=== PATIENT | male | born 1995 | race African-American/Black ===

== ENCOUNTER 2018-12-02 16:03 | Emergency (ER) | payer SELFPAY ==
--- NOTE | 2018-12-02 16:09 | PDOC ---
Rapid Medical Evaluation Time Seen by Provider: 12/02/18 16:08 Medical Evaluation: 12/02/18 16:08 I have performed a brief in-person evaluation of this patient. The patient presents with a chief complaint of: abd pain Pertinent physical exam findings:stable and in NAD, non-focal I have ordered the following:labs The patient will proceed to the ED for further evaluation.
[2018-12-02 16:10] VITALS: BMI 21.8
[2018-12-02] MEDS ORDERED: SODIUM CHLORIDE 1,000 ML IV STA (16:10)
[2018-12-02 16:45] LABS: BASO % 0.3 % (0-2.0); HEMATOCRIT 43.2 % (35.4-49); HEMOGLOBIN 13.9 GM/dL (11.7-16.9); LYMPH % 7.6 % (8-40); MCH 28.2 pg (25.7-33.7); MCHC 32.2 g/dl (32.0-35.9); MEAN CELL VOLUME 87.6 fl (80-96); MEAN PLT VOLUME 9.9 fl (7.5-11.1); MONO % 4.4 % (3.8-10.2); NEUT % 87.7 % (42.8-82.8); PLATELET COUNT 199 K/MM3 (134-434); RBC 4.93 M/mm3 (4.00-5.60); WHITE BLOOD COUNT 12.4 K/mm3 (4.0-10.0)
[2018-12-02] MEDS ORDERED: ONDANSETRON 4 MG/2 ML VIAL IVPUSH ONE (16:50)
--- NOTE | 2018-12-02 16:59 | PDOC ---
History of Present Illness - General Chief Complaint: Pain, Acute Stated Complaint: ABD/PAIN/VOMITTING/NAUSEA Time Seen by Provider: 12/02/18 16:08 - History of Present Illness Initial Comments: 12/02/18 16:55 23m with pmh of appendicitis 5 years ago presents to the ED with nausea, vomiting, diarrhea and abdominal pain since last night. The pain is diffuse over the lower abdomen, constant and worsening. He minimally communicative due to the discomfort produced by the nausea and the pain. Had 3 episodes of vomiting spread across the day. Denies eating anything abnormal, denies sick contacts. Moved his bowel once today, which was watery. No bloody or black stools. Denies taking any medication for the pain. Admits to alcohol and marijuana use last night, but no more than usual. Past History - Past Medical History Allergies/Adverse Reactions: Allergies Allergy/AdvReac Type Severity Reaction Status Date / Time No Known Allergies Allergy Verified 12/02/18 16:10 COPD: No - Surgical History Appendectomy: Yes - Suicide/Smoking/Psychosocial Hx Smoking History: Never smoked Hx Alcohol Use: No Drug/Substance Use Hx: No Review of Systems - Review of Systems Able to Perform ROS?: Yes Is the patient limited Romansh proficient: No Constitutional: No: Symptoms Reported HEENTM: No: Symptoms Reported Respiratory: No: Symptoms reported Cardiac (ROS): No: Symptoms Reported ABD/GI: Yes: See HPI : No: Symptoms Reported Musculoskeletal: No: Symptoms Reported All Other Systems: Reviewed and Negative *Physical Exam - Vital Signs Last Vital Signs Temp Pulse Resp BP Pulse Ox 97.9 F 55 L 16 125/68 100 12/02/18 16:07 12/02/18 16:07 12/02/18 16:07 12/02/18 16:07 12/02/18 16:07 - Physical Exam General Appearance: Yes: Nourished, Appropriately Dressed, Moderate Distress HEENT: positive: EOMI, DAVID, Normal ENT Inspection Respiratory/Chest: positive: Lungs Clear, Normal Breath Sounds. negative: Chest Tender, Respiratory Distress Cardiovascular: positive: Regular Rhythm, S1, S2, Bradycardia Gastrointestinal/Abdominal: positive: Normal Bowel Sounds, Tender (only mildly tender on palpation of the lower abdomen.), Flat, Soft Male Genitalia: positive: normal genitalia. negative: testicular tenderness, testicular mass, epididymus tender, hernia Musculoskeletal: positive: Normal Inspection. negative: CVA Tenderness Extremity: positive: Normal Capillary Refill, Normal Inspection, Normal Range of Motion Neurologic: positive: Fully Oriented, Alert, Normal Mood/Affect, Normal Response , Motor Strength 08/02 ED Treatment Course - LABORATORY CBC & Chemistry Diagram: 12/02/18 16:33 12/02/18 16:09 Medical Decision Making - Medical Decision Making 12/02/18 17:23 23M with lower abdominal pain n/v/d/ since last night. Viral gastroenteritis vs testicular torsion vs UTi Will check the patient's basic labs for signs of infection or dehydration, give fluids and zofran. If no relief, will consider ct scan with contrast. 12/02/18 18:11 Patient reassessed, non tender on exam, mildly nauseous, however patient still complaining of pain. UA pending. Ct abdomen and pelvis with contrast pending. 12/02/18 19:14 Patient signed out to Dr. Garza. *DC/Admit/Observation/Transfer Diagnosis at time of Disposition: Abdominal pain - Referrals - Patient Instructions - Post Discharge Activity
[2018-12-02 17:15] VITALS: TEMP 98
[2018-12-02 17:15] LABS: ALBUMIN 4.3 g/dl (3.4-5.0); BILIRUBIN,TOTAL 1.4 mg/dL (0.2-1); BLOOD UREA NITROGEN 7.5 mg/dL (7-18); CALCIUM 10.1 mg/dL (8.5-10.1); CREATININE 0.9 mg/dL (0.55-1.3); POTASSIUM 3.9 mmol/L (3.5-5.1); TOT PROT 8.7 g/dl (6.4-8.2)
[2018-12-02] MEDS ORDERED: ONDANSETRON 4 MG/2 ML VIAL ONE (17:19)
--- NOTE | 2018-12-02 19:13 | PDOC ---
Documentation entered by Gina Moy SCRIBE, acting as scribe for Coreen Brown MD. Coreen Brown MD: This documentation has been prepared by the Farzaneh mckeon Xhesika, SCRIBE, under my direction and personally reviewed by me in its entirety. I confirm that the documentation accurately reflects all work, treatment, procedures, and medical decision making performed by me. Attending Attestation - Resident Resident Name: [place] - ED Attending Attestation I have performed the following: I have examined & evaluated the patient, The case was reviewed & discussed with the resident, I agree w/resident's findings & plan, Exceptions are as noted - HPI HPI: 12/02/18 18:02 The patient is a 23 year old male with a significant PMH of appendicitis (2013) who presents to the emergency department for nausea, vomiting, diarrhea and abdominal pain since last night. The patient states he endorsed 3 episodes of NBNB emesis last night and 3 episodes throughout the day today. Patient states he also endorsed 1 episode of watery, non bloody diarrhea and constant, diffuse lower abdominal pain. Patient notes he had alcohol and marjiuana last night. Patient denies sick contacts, recent travels, or new foods. The patient denies chest pain, shortness of breath, headache and dizziness. Denies fever, chills, cough, and constipation. Denies dysuria, frequency, urgency and hematuria. Denies recent travel. Allergies: NKDA - Physicial Exam PE: 12/02/18 18:03 GENERAL: Awake, alert, and fully oriented, in no acute distress EYES: PERRLA, EOMI, sclera anicteric, conjunctiva clear ENT: Oropharynx clear without exudates. Moist mucosa NECK: Normal ROM, supple, no lymphadenopathy, JVD, or masses LUNGS: Breath sounds equal, clear to auscultation bilaterally. No wheezes, and no crackles HEART: Regular rate and rhythm, normal S1 and S2, no murmurs, rubs or gallops ABDOMEN: Soft, +diffuse lower abd ttp, normoactive bowel sounds. No guarding, no rebound. No masses EXTREMITIES: Normal range of motion, no edema. No cords, erythema, or tenderness. WWP, 2+ peripheral pulses x4 BACK: No midline spinal tenderness in cervical/thoracic/lumbar region NEUROLOGICAL: Normal speech, cranial nerves intact, equal strength and sensation b/l SKIN: Warm, Dry, normal turgor, no rashes or lesions noted. - Medical Decision Making 12/02/18 18:07 23yo M prsents to the ED with lower abdominal pain a/w N/V/D DDx includes colitis vs gastreneteritis vs diverticulitis vs cannabinoid hyperemesis syndrome vs UTI Plan for labs, UA, CTAP, symptom control, dispo Labs, UA, CTAP pending 12/02/18 19:00 Labs with leukocytosis to 12 Continues to be tender in lower abdomen, specifically LLQ UA, CTAP pending Case signed out to Dr. Cutler for further mgmt/dispo
--- NOTE | 2018-12-02 19:20 | PDOC ---
*Physical Exam - Vital Signs Last Vital Signs Temp Pulse Resp BP Pulse Ox 98.0 F 89 22 H 142/74 100 12/02/18 17:11 12/02/18 17:11 12/02/18 17:11 12/02/18 17:11 12/02/18 16:07 - Physical Exam General Appearance: Yes: Nourished, Appropriately Dressed. No: Apparent Distress, Alcohol on Breath HEENT: positive: EOMI, DAVID, Normal Voice, Symmetrical, Pharynx Normal. negative: Scleral Icterus (R), Scleral Icterus (L), Pharyngeal Erythema, Tonsillar Exudate, Tonsillar Erythema, Nasal Congestion Neck: positive: Trachea midline, Normal Thyroid, Supple. negative: Tender, Lymphadenopathy (R), Lymphadenopathy (L) Respiratory/Chest: positive: Lungs Clear, Normal Breath Sounds. negative: Chest Tender, Respiratory Distress, Crackles, Rales, Rhonchi Cardiovascular: positive: Regular Rhythm, Regular Rate Gastrointestinal/Abdominal: positive: Normal Bowel Sounds, Soft. negative: Tender, Organomegaly Musculoskeletal: positive: Normal Inspection Extremity: positive: Normal Capillary Refill, Normal Inspection, Normal Range of Motion. negative: Tender Integumentary: positive: Normal Color, Dry, Warm Neurologic: positive: Fully Oriented, Alert, Normal Mood/Affect, Normal Response ED Treatment Course - LABORATORY CBC & Chemistry Diagram: 12/02/18 16:33 12/02/18 16:09 - ADDITIONAL ORDERS Additional order review: Laboratory Results 12/02/18 16:09 Sodium 139 Potassium 3.9 Chloride 103 Carbon Dioxide 29 Anion Gap 7 L BUN 7.5 Creatinine 0.9 Est GFR (CKD-EPI)AfAm 139.04 Est GFR (CKD-EPI)NonAf 119.96 Random Glucose 96 Calcium 10.1 Total Bilirubin 1.4 H AST 17 ALT 16 Alkaline Phosphatase 100 Total Protein 8.7 H Albumin 4.3 12/02/18 16:33 RBC 4.93 MCV 87.6 MCHC 32.2 RDW 13.0 MPV 9.9 Neutrophils % 87.7 H Lymphocytes % 7.6 L Monocytes % 4.4 Eosinophils % 0.0 Basophils % 0.3 - Medications Given in the ED: ED Medications Discontinued Medications Generic Name Dose Route Start Last Admin Trade Name Freq PRN Reason Stop Dose Admin Sodium Chloride 1,000 mls @ 1,000 mls/hr 12/02/18 16:10 12/02/18 17:19 Normal Saline - IV 12/02/18 17:09 1,000 mls/hr ASDIR STA Administration Ondansetron HCl 4 mg 12/02/18 16:50 12/02/18 17:19 Zofran Injection IVPUSH 12/02/18 16:51 4 mg ONCE ONE Administration Medical Decision Making - Medical Decision Making 12/02/18 19:19 Signed out to me by Dr. Nicholson. 23M presenting with N/V/D and abd pain. Gave fluids, Zofran, N/V under control but still having abd pain. Getting CT abd with contrast to further evaluate abd pathology. WBC 12. Plan: [] CT abd w/ contrast [] dispo home if no pathology noted 12/02/18 21:27 CT abd read: Impression: Allowing for lack of bowel distention and lack of intraluminal contrast there appears to be concentric colonic wall thickening suggestive of acute colitis. Correlate clinically. Confirmation and further evaluation utilizing CT with oral contrast may be considered. A very small amount of free fluid is noted within the lower pelvis in the region of the rectovesical space. Small nonobstructing bilateral renal calculi. Nonspecific mildly enlarged retroperitoneal and mesenteric lymph nodes are seen. Patient has unspecified colitis but no history or known etiology. Will send home with referral for GI Dr. Carrillo to assess for possible Crohn's vs. UC vs. infectious etiology. 12/02/18 21:41 Reports marijuana smoking daily twice a day for the last 5 years. Day team concerned about cyclic vomiting syndrome. Will trial 5mg IM haldol. 12/02/18 22:38 Patient feels better after IM haldol. PO trialed, able to hold down crackers and juice. Patient will be discharged and picked up by mother. *DC/Admit/Observation/Transfer Diagnosis at time of Disposition: Abdominal pain Qualifiers: Abdominal location: unspecified location Qualified Code(s): R10.9 - Unspecified abdominal pain Nausea & vomiting Qualifiers: Vomiting type: unspecified Vomiting Intractability: non-intractable Qualified Code(s): R11.2 - Nausea with vomiting, unspecified - Discharge Dispostion Disposition: HOME Condition at time of disposition: Stable Decision to Admit order: No - Prescriptions Prescriptions: Ondansetron [Zofran -] 4 mg PO BID PRN #14 tablet PRN Reason: Nausea And/Or Vomiting - Referrals Referrals: Gaudencio Carrillo MD [Staff Physician] - Alireza Martinez MD [Staff Physician] - - Patient Instructions Printed Discharge Instructions: DI for Abdominal Pain-Adult, DI for Nausea -- Adult Additional Instructions: Today you were evaluated for nausea, vomiting, and abdominal pain. Your labs show that you have an elevated white blood cell count that is not concerning at this time, but should be followed-up with your primary doctor. We obtained a CT scan of your abdomen that shows you have a condition called colitis, but we are unsure of the reason why or if it is related to your diarrhea, and needs to be followed-up with a varnish melter helper. Please stay hydrated and eat bland foods as tolerated for your nausea and vomiting. We have included a prescription for Zofran to help with your nausea. Please follow-up with your primary doctor in the next 3 days for further evaluation and continuation of care. We have included a referral for the internal medicine clinic at [facility]. We have also included a referral to see Dr. Carrillo, a varnish melter helper, for further evaluation of the colitis seen on your CT scan. If you experience further abdominal pain, worsening diarrhea/vomiting/nausea, have blood in your vomit or stools, become dizzy or weak, have fevers, or have any other new or concerning symptoms, please return to the closest emergency room as soon as possible. - Post Discharge Activity
[2018-12-02 19:34] LABS: URINE APPEARANCE CLEAR; URINE BILIRUBIN NEGATIVE (NEGATIVE); URINE COLOR YELLOW; URINE GLUCOSE (UA) NEGATIVE (NEGATIVE); URINE KETONE 2+ (NEGATIVE); URINE LEUK ESTERASE NEGATIVE (NEGATIVE); URINE NITRITE NEGATIVE (NEGATIVE); URINE PROTEIN NEGATIVE (NEGATIVE)
[2018-12-02] MEDS ORDERED: HALOPERIDOL LACTATE 5 MG/ML IM ONE (21:39)
[2018-12-02] MEDS ORDERED: HALOPERIDOL LACTATE 5 MG/ML ONE (22:15)
[2018-12-02 23:24] VITALS: BP 128/62; PULSE 60
== END 2018-12-02 23:29 | disposition home or self-care (01) ==
LOC: JER 16:03
PROC: 3E0233Z Introduction of Anti-inflammatory into Muscle, Percutaneous Approach (ICD-10-PCS; principal; 2018-12-02)
PROC: 3E0337Z Introduction of Electrolytic and Water Balance Substance into Peripheral Vein, Percutaneous Approach (ICD-10-PCS; 2018-12-02)
PROC: 3E033GC Introduction of Other Therapeutic Substance into Peripheral Vein, Percutaneous Approach (ICD-10-PCS; 2018-12-02)
DX: K52.9 Noninfective gastroenteritis and colitis, unspecified (principal); F12.10 Cannabis abuse, uncomplicated
CPT/HCPCS: 36415; 74177-TC; 80053; 81003; 85025; 87086; 99283-25; J7030

== ENCOUNTER 2018-12-04 13:13 | Emergency (ER) | payer OTHER ==
[2018-12-04 13:55] VITALS: BMI 21.8
[2018-12-04] MEDS ORDERED: ONDANSETRON 4 MG/2 ML VIAL IVPB ONE (15:00)
[2018-12-04] MEDS ORDERED: SODIUM CHLORIDE 1,000 ML IV STA (15:00)
--- NOTE | 2018-12-04 15:03 | PDOC ---
History of Present Illness - General Chief Complaint: Nausea/Vomiting Stated Complaint: VOMITTING Time Seen by Provider: 12/04/18 14:34 History Source: Patient, Old Records Exam Limitations: No Limitations - History of Present Illness Travel History: No Initial Comments: 12/04/18 15:01 HISTORY OF PRESENT ILLNESS: 23-year-old male with past medical history of appendicitis status post appendectomy 2014 presents emergency department for evaluation of abdominal pain for 2 days. Reports the pain is diffuse throughout his abdomen is unable to quantify other than it's "really bad." Patient has associated nausea and vomiting and reports his inability to tolerate solids or liquids since discharge from the ER yesterday. Patient was seen in this emergency department yesterday and is noted to have a negative workup and found to have an acute gastroenteritis. Patient reports noted in the minimum feel better was receiving a held all injection prior to discharge. No recent travel or sick contacts. PAST MEDICAL HISTORY: Denies past medical history SURGICAL HISTORY: Denies ALLERGIES: No known drug allergies REVIEW OF SYSTEMS General/Constitutional: Denies fever or chills. Denies weakness, weight change. HEENT: Denies change in vision. Denies ear pain or discharge. Denies sore throat. Cardiovascular: Denies chest pain or shortness of breath. Respiratory: Denies cough, wheezing, or hemoptysis. Gastrointestinal: see HPI Genitourinary: Denies dysuria, frequency, or change in urination. Musculoskeletal: Denies joint or muscle swelling or pain. Denies neck or back pain. Skin and breasts: Denies rash or easy bruising. Neurologic: Denies headache, vertigo, loss of consciousness, or loss of sensation. Psychiatric: Denies depression or anxiety. Endocrine: Denies increased thirst. Denies abnormal weight change. Hematologic/Lymphatic: Denies anemia, easy bleeding, or history of blood clots. Allergic/Immunologic: Denies hives or skin allergy. Denies latex allergy. PHYSICAL EXAM General Appearance: Well-appearing, appropriately dressed. No apparent distress , no intoxication. Respiratory/Chest: Lungs CTAB. No shortness of breath, chest tenderness, respiratory distress, accessory muscle use. No crackles, rales, rhonchi, stridor , wheezing, dullness Cardiovascular: RRR. S1, S2. No JVD, murmur, bradycardia, tachycardia. Vascular Pulses: Dorsalis-Pedis (R): 2+, Dorsalis-Pedis (L): 2+ Gastrointestinal/Abdominal: Normal bowel sounds. Abdomen soft, non-distended. No tenderness or rebound tenderness. No organomegaly, pulsatile mass, guarding, hernia, hepatomegaly, splenomegaly. Integumentary: Appropriate color, dry, warm. No cyanosis, erythema, jaundice or rash Past History - Past Medical History Allergies/Adverse Reactions: Allergies Allergy/AdvReac Type Severity Reaction Status Date / Time No Known Allergies Allergy Verified 12/04/18 13:45 Home Medications: Ambulatory Orders Ondansetron [Zofran -] 4 mg PO BID PRN #14 tablet 12/02/18 COPD: No - Surgical History Appendectomy: Yes - Suicide/Smoking/Psychosocial Hx Smoking History: Unknown if ever smoked Hx Alcohol Use: No Drug/Substance Use Hx: No *Physical Exam - Vital Signs Last Vital Signs Temp Pulse Resp BP Pulse Ox 98.3 F 68 16 139/62 100 12/04/18 13:42 12/04/18 13:42 12/04/18 13:42 12/04/18 13:42 12/04/18 13:42 ED Treatment Course - LABORATORY CBC & Chemistry Diagram: 12/04/18 16:30 12/04/18 15:55 Medical Decision Making - Medical Decision Making 12/04/18 15:04 A/P: 23-year-old man with continued abdominal pain status post discharge from ER on CT of the abdomen and pelvis performed on 12/03 as follows: Impression: Allowing for lack of bowel distention and lack of intraluminal contrast there appears to be concentric colonic wall thickening suggestive of acute colitis. Correlate clinically. Confirmation and further evaluation utilizing CT with oral contrast may be considered. A very small amount of free fluid is noted within the lower pelvis in the region of the rectovesical space. Small nonobstructing bilateral renal calculi. Nonspecific mildly enlarged retroperitoneal and mesenteric lymph nodes are seen. Repeat CBC and CMP with lipase Normal saline 1 L IV bolus Zofran 8 mg IV push Reassess 12/04/18 17:07 Patient continues to have abdominal pain despite IV fluids and Zofran. Upon further questioning patient admits to smoking marijuana after leaving the hospital last night. Patient understands this is not a good idea. Most likely symptoms are from cyclic vomiting syndrome due to marijuana usage. I will give the patient a dose of haloperidol 5 mg IM once and reevaluate. 12/04/18 19:32 Patient states improvement after receiving haloperidol injection. It was explained to the patient that Haldol injections should not be needed when he can just abstain from marijuana usage. Patient is verbalized understanding of discharge instructions. I discussed the physical exam findings, ancillary test results and final diagnoses with the patient. I answered all of the patient's questions. The patient was satisfied with the care received and felt comfortable with the discharge plan and treatment plan. The patient will call their primary care physician within 24 hours to arrange follow-up and will return to the Emergency Department with any new, persistent or worsening symptoms. Portions of this note have been documented using voice recognition software. As a result, errors may occur in the rehabilitation psychologist process. Effort has been made to correct all grammatical and rehabilitation psychologist error, but some may have been missed. *DC/Admit/Observation/Transfer Diagnosis at time of Disposition: Nausea & vomiting Qualifiers: Vomiting type: cyclical vomiting Vomiting Intractability: non-intractable Qualified Code(s): G43.A0 - Cyclical vomiting, not intractable - Discharge Dispostion Disposition: HOME Condition at time of disposition: Stable Decision to Admit order: No - Referrals - Patient Instructions Additional Instructions: Avoid marijuana and alcohol usage. Follow-up with Dr. Carrillo from GI for continued evaluation from her previous visit. Return to the emergency department for any new or worsening symptoms. Thank you very much for choosing us to provide your emergent health care needs. - Post Discharge Activity
--- NOTE | 2018-12-04 15:24 | PDOC ---
*Physical Exam - Vital Signs Last Vital Signs Temp Pulse Resp BP Pulse Ox 98.3 F 68 16 139/62 100 12/04/18 13:42 12/04/18 13:42 12/04/18 13:42 12/04/18 13:42 12/04/18 13:42 ED Treatment Course - LABORATORY CBC & Chemistry Diagram: 12/04/18 16:30 12/04/18 15:55 Medical Decision Making - Medical Decision Making 12/04/18 18:27 Mr. Nazario is a 23 yo M h/o appendectomy in 2013, presenting with abdominal pain x 2 days Diffuse throughout his abdomen is unable to quantify other than it's "really bad." Patient has associated nausea and vomiting and reports his inability to tolerate solids or liquids since discharge from the ER yesterday. CT yesterday, no SBO, possible colitis (however, no po contrast) Will plan to check labs Will IV hydrate Will re Assess Pt signed out to overnight team 12/04/18 19:04 Agree with plan per SERVICE STATION MANAGER Gabe Agree with physical examination *DC/Admit/Observation/Transfer Diagnosis at time of Disposition: Nausea & vomiting - Discharge Dispostion Disposition: HOME Condition at time of disposition: Stable - Referrals - Patient Instructions Additional Instructions: Avoid marijuana and alcohol usage. Follow-up with Dr. Carrillo from GI for continued evaluation from her previous visit. Return to the emergency department for any new or worsening symptoms. Thank you very much for choosing us to provide your emergent health care needs. - Post Discharge Activity
[2018-12-04] MEDS ORDERED: ONDANSETRON 4 MG/2 ML VIAL ONE (16:01)
[2018-12-04 17:04] LABS: BASO % 0.3 % (0-2.0); HEMATOCRIT 38.9 % (35.4-49); HEMOGLOBIN 12.9 GM/dL (11.7-16.9); LYMPH % 7.5 % (8-40); MCH 28.7 pg (25.7-33.7); MCHC 33.2 g/dl (32.0-35.9); MEAN CELL VOLUME 86.5 fl (80-96); MEAN PLT VOLUME 10.3 fl (7.5-11.1); MONO % 3.8 % (3.8-10.2); NEUT % 88.4 % (42.8-82.8); PLATELET COUNT 182 K/MM3 (134-434); RDW 12.8 % (11.9-15.9); WHITE BLOOD COUNT 8.2 K/mm3 (4.0-10.0)
[2018-12-04] MEDS ORDERED: HALOPERIDOL LACTATE 5 MG/ML IM ONE (17:07)
[2018-12-04 17:26] LABS: ALBUMIN 4.3 g/dl (3.4-5.0); BILIRUBIN,TOTAL 1.7 mg/dL (0.2-1); BLOOD UREA NITROGEN 10.7 mg/dL (7-18); CALCIUM 9.8 mg/dL (8.5-10.1); CREATININE 0.9 mg/dL (0.55-1.3); POTASSIUM 3.7 mmol/L (3.5-5.1); TOT PROT 8.6 g/dl (6.4-8.2)
[2018-12-04] MEDS ORDERED: HALOPERIDOL LACTATE 5 MG/ML ONE (17:52)
[2018-12-04 18:01] VITALS: BP 127/58; PULSE 58; TEMP 99.5
== END 2018-12-04 20:53 | disposition home or self-care (01) ==
LOC: JER 13:13
PROC: 3E0337Z Introduction of Electrolytic and Water Balance Substance into Peripheral Vein, Percutaneous Approach (ICD-10-PCS; principal; 2018-12-04)
PROC: 3E033GC Introduction of Other Therapeutic Substance into Peripheral Vein, Percutaneous Approach (ICD-10-PCS; 2018-12-04)
PROC: 3E023NZ Introduction of Analgesics, Hypnotics, Sedatives into Muscle, Percutaneous Approach (ICD-10-PCS; 2018-12-04)
DX: G43.A0 Cyclical vomiting, in migraine, not intractable (principal)
CPT/HCPCS: 36415; 80053; 83690; 85025; 96361; 96372; 96374; 99283-25; J7030

== ENCOUNTER 2020-09-26 16:56 | Emergency (ER) | payer OTHER ==
[2020-09-26 17:09] VITALS: TEMP 97.9; BMI 23.1
[2020-09-26] MEDS ORDERED: ONDANSETRON 4 MG/2 ML VIAL IVPUSH ONE (17:20)
[2020-09-26] MEDS ORDERED: SODIUM CHLORIDE 1,000 ML IV STA ×2 (17:20→19:33)
[2020-09-26] MEDS ORDERED: ONDANSETRON 4 MG/2 ML VIAL ONE (18:09)
[2020-09-26 18:40] LABS: BASO % 0.3 % (0-2.0); HEMATOCRIT 42.6 % (35.4-49); HEMOGLOBIN 13.9 GM/dL (11.7-16.9); LYMPH % 6.6 % (8-40); MCH 28.7 pg (25.7-33.7); MCHC 32.5 g/dl (32.0-35.9); MEAN CELL VOLUME 88.3 fl (80-96); MEAN PLT VOLUME 9.5 fl (7.5-11.1); MONO % 4.2 % (3.8-10.2); NEUT % 88.9 % (42.8-82.8); PLATELET COUNT 199 10^3/uL (134-434); RBC 4.82 M/mm3 (4.00-5.60); RDW 12.5 % (11.9-15.9); WHITE BLOOD COUNT 12.6 K/mm3 (4.0-10.0)
[2020-09-26 19:00] LABS: CALCIUM 9.9 mg/dL (8.5-10.1)
[2020-09-26 19:01] LABS: ALBUMIN 4.4 g/dl (3.4-5.0)
[2020-09-26 19:03] LABS: CREATININE 0.8 mg/dL (0.55-1.3)
[2020-09-26 19:05] LABS: BILIRUBIN,TOTAL 0.9 mg/dL (0.2-1); TOT PROT 9.2 g/dl (6.4-8.2)
[2020-09-26] MEDS ORDERED: METOCLOPRAMIDE HCL INJECTION 10 MG/2 ML VIAL IVPUSH ONE (19:33)
[2020-09-26] MEDS ORDERED: METOCLOPRAMIDE HCL INJECTION 10 MG/2 ML VIAL ONE (20:43)
[2020-09-26 23:05] LABS: PH,URINE 5.5 (5.0-8.0); URINE APPEARANCE CLEAR; URINE BILIRUBIN NEGATIVE (NEGATIVE); URINE COLOR YELLOW; URINE GLUCOSE (UA) NEGATIVE (NEGATIVE); URINE KETONE 3+ (NEGATIVE); URINE LEUK ESTERASE NEGATIVE (NEGATIVE); URINE NITRITE NEGATIVE (NEGATIVE); URINE PROTEIN NEGATIVE (NEGATIVE); URINE UROBILINOGEN 0.2 mg/dL (0.2-1.0)
[2020-09-26 23:08] VITALS: BP 132/75; PULSE 62
== END 2020-09-26 23:33 | disposition home or self-care (01) ==
LOC: JER 16:56
PROC: 3E033GC Introduction of Other Therapeutic Substance into Peripheral Vein, Percutaneous Approach (ICD-10-PCS; principal; 2020-09-26)
PROC: 3E033GC Introduction of Other Therapeutic Substance into Peripheral Vein, Percutaneous Approach (ICD-10-PCS; 2020-09-26)
PROC: 3E0337Z Introduction of Electrolytic and Water Balance Substance into Peripheral Vein, Percutaneous Approach (ICD-10-PCS; 2020-09-26)
PROC: 3E0337Z Introduction of Electrolytic and Water Balance Substance into Peripheral Vein, Percutaneous Approach (ICD-10-PCS; 2020-09-26)
DX: K52.9 Noninfective gastroenteritis and colitis, unspecified (principal)
CPT/HCPCS: 36415; 80053; 81003; 83690; 85025; 87086; 99284-25

== ENCOUNTER 2022-09-10 20:10 | Observation (INO) | payer OTHER ==
[2022-09-10] MEDS ORDERED: SODIUM CHLORIDE 0.9% 500 ML INFUS.BAG IV ONE ×2 (20:25→21:37)
[2022-09-10] MEDS ORDERED: FAMOTIDINE 20 MG/50 ML IVPB 20 MG/50 ML MG IVPB ONE ×2 (20:25→20:34)
[2022-09-10] MEDS ORDERED: ACETAMINOPHEN 1000 MG/100 ML BAG IVPB ONE (20:25)
[2022-09-10] MEDS ORDERED: ONDANSETRON 4 MG/2 ML VIAL IVPUSH ONE (20:26)
[2022-09-10] MEDS ORDERED: ONDANSETRON 4 MG/2 ML VIAL ONE (20:34)
[2022-09-10] MEDS ORDERED: ACETAMINOPHEN INJECTION 100 ML IVPB ONE (20:34)
[2022-09-10 20:56] LABS: HEMATOCRIT 42.7 % (35.4-49); HEMOGLOBIN 14.1 GM/dL (11.7-16.9); MCH 28.7 pg (25.7-33.7); MEAN CELL VOLUME 86.9 fl (80-96); MEAN PLT VOLUME 9.4 fl (7.5-11.1); PLATELET COUNT 204 10^3/uL (134-434); RBC 4.91 M/mm3 (4.00-5.60); RDW 12.6 % (11.9-15.9); WHITE BLOOD COUNT 11.9 K/mm3 (4.0-10.0)
[2022-09-10 21:19] LABS: POTASSIUM 4.2 mmol/L (3.5-5.1)
[2022-09-10 21:22] LABS: ALBUMIN 4.5 g/dl (3.4-5.0); BLOOD UREA NITROGEN 11.2 mg/dL (7-18); MAGNESIUM 1.7 mg/dL (1.8-2.4)
[2022-09-10 21:24] LABS: CREATININE 0.9 mg/dL (0.55-1.3)
[2022-09-10 21:26] LABS: BILIRUBIN,TOTAL 1.4 mg/dL (0.2-1); TOT PROT 8.9 g/dl (6.4-8.2)
[2022-09-10] MEDS ORDERED: MAGNESIUM SULF 50% (8.12 MEQ/2 ML-1 GM VIAL) IVPB ONE (21:29)
[2022-09-10] MEDS ORDERED: METOCLOPRAMIDE HCL INJECTION 10 MG/2 ML VIAL IVPB ONE (21:37)
[2022-09-10] MEDS ORDERED: MAG HYDROX/AL HYDROX/SIMETH 30 ML UNIT-DOSE CUP PO ONE (21:37)
[2022-09-10] MEDS ORDERED: MAG HYDROX/AL HYDROX/SIMETH 30 ML UNIT-DOSE CUP ONE (21:41)
[2022-09-10] MEDS ORDERED: MAGNESIUM SULFATE IN WATER 2 GM/50 ML IVPB IVPB ONE (21:41)
[2022-09-10] MEDS ORDERED: METOCLOPRAMIDE HCL INJECTION 10 MG/2 ML VIAL ONE (21:41)
[2022-09-10 21:50] LABS: ANISOCYTOSIS 0; MACROCYTOSIS 0
[2022-09-11 00:19] LABS: PH,URINE 5.5 (5.0-8.0); URINE APPEARANCE CLEAR; URINE BILIRUBIN NEGATIVE (NEGATIVE); URINE COLOR YELLOW; URINE GLUCOSE (UA) NEGATIVE (NEGATIVE); URINE KETONE 3+ (NEGATIVE); URINE LEUK ESTERASE NEGATIVE (NEGATIVE); URINE NITRITE NEGATIVE (NEGATIVE); URINE PROTEIN TRACE (NEGATIVE)
[2022-09-11 00:25] LABS: COCAINE, UR NEGATIVE (NEGATIVE); OPIATES, URI NEGATIVE (NEGATIVE); URINE AMPHETAMINES NEGATIVE (NEGATIVE); URINE BARBITURATES NEGATIVE (NEGATIVE)
[2022-09-11 00:26] LABS: METHADONE, UR NEGATIVE (NEGATIVE); PHENCYCLIDINE,URINE NEGATIVE (NEGATIVE); URINE BENZODIAZEPINES NEGATIVE (NEGATIVE)
[2022-09-11] MEDS ORDERED: CEFTRIAXONE 1,000 MG in DEXTROSE 5%-WATER - 50 ML IVPB ONE (00:56)
[2022-09-11] MEDS ORDERED: CEFTRIAXONE 1 GM/50 ML BAG ONE (01:16)
[2022-09-11] MEDS ORDERED: DOCUSATE SODIUM 100 MG CAPSULE (FP) PO PRN (01:38)
[2022-09-11] MEDS ORDERED: DEXTROSE 5%-NORMAL SALINE 1,000 ML IV SCH (01:45)
[2022-09-11] MEDS ORDERED: ACETAMINOPHEN 1000 MG/100 ML BAG IVPB PRN ×2 (03:00→07:59)
[2022-09-11] MEDS ORDERED: ONDANSETRON 4 MG/2 ML VIAL IVPUSH PRN (03:00)
[2022-09-11 04:54] VITALS: BMI 23.3
[2022-09-11 06:38] LABS: BASO % 0.4 % (0-2.0); HEMATOCRIT 38.6 % (35.4-49); HEMOGLOBIN 12.7 GM/dL (11.7-16.9); LYMPH % 12.4 % (8-40); MCH 28.9 pg (25.7-33.7); MCHC 32.9 g/dl (32.0-35.9); MEAN PLT VOLUME 9.5 fl (7.5-11.1); MONO % 6.5 % (3.8-10.2); NEUT % 80.7 % (42.8-82.8); PLATELET COUNT 194 10^3/uL (134-434); RBC 4.38 M/mm3 (4.00-5.60); RDW 12.6 % (11.9-15.9); WHITE BLOOD COUNT 11.6 K/mm3 (4.0-10.0)
[2022-09-11 06:48] LABS: INR 1.31 (0.83-1.09); PROTHROMBIN TIME (PATIENT) 15.2 SEC (9.7-13.0)
[2022-09-11 06:50] LABS: ACTIVATED PTT 33.2 SECONDS (25.2-36.5)
[2022-09-11 06:56] LABS: POTASSIUM 4.1 mmol/L (3.5-5.1)
[2022-09-11 06:57] LABS: CALCIUM 9.3 mg/dL (8.5-10.1)
[2022-09-11 06:58] LABS: BLOOD UREA NITROGEN 7.3 mg/dL (7-18); MAGNESIUM 1.8 mg/dL (1.8-2.4)
[2022-09-11 07:01] LABS: CREATININE 0.8 mg/dL (0.55-1.3); PHOSPHOROUS 4.2 mg/dL (2.5-4.9)
[2022-09-11] MEDS ORDERED: SODIUM CHLORIDE 0.45% 1,000 ML IV SCH (07:45)
[2022-09-11] MEDS ORDERED: DEXTROSE 5%-0.45% SALINE 1,000 ML IV SCH (08:00)
[2022-09-11 08:56] VITALS: RESP 18
[2022-09-11] MEDS ORDERED: PANTOPRAZOLE 40 MG TABLET PO SCH (10:00)
[2022-09-11] MEDS ORDERED: FAMOTIDINE 20 MG/50 ML IVPB 20 MG/50 ML MG IVPB SCH (10:00)
[2022-09-11 18:35] VITALS: BP 135/58; PULSE 52; TEMP 98.6
[2022-09-11] MEDS ORDERED: CEFTRIAXONE 1 GM in DEXTROSE 5%-WATER - 50 ML IVPB SCH (22:00)
[2022-09-12] MEDS ORDERED: ACETAMINOPHEN 325 MG TABLET (FP) PO PRN (03:00)
== END 2022-09-11 19:33 | disposition home or self-care (01) ==
LOC: JER 20:10 → JERBED 09-11 01:36 → J4S 09-11 04:24
PROVIDERS: ADMIT Internal Medicine; ATTEND Internal Medicine
PROC: 3E033NZ Introduction of Analgesics, Hypnotics, Sedatives into Peripheral Vein, Percutaneous Approach (ICD-10-PCS; principal; 2022-09-11)
PROC: 3E033GC Introduction of Other Therapeutic Substance into Peripheral Vein, Percutaneous Approach (ICD-10-PCS; 2022-09-11)
PROC: 3E03329 Introduction of Other Anti-infective into Peripheral Vein, Percutaneous Approach (ICD-10-PCS; 2022-09-11)
PROC: 3E0337Z Introduction of Electrolytic and Water Balance Substance into Peripheral Vein, Percutaneous Approach (ICD-10-PCS; 2022-09-11)
DX: R11.2 Nausea with vomiting, unspecified (principal); F12.90 Cannabis use, unspecified, uncomplicated; R10.9 Unspecified abdominal pain; K29.70 Gastritis, unspecified, without bleeding
CPT/HCPCS: 36415; 74177-TC; 76705-TC; 80048; 80053; 80307; 81003; 82962; 83690; 83735; 84100; 85025; 85610; 85730; 87086; 93005; 93010; 93306-TC; 96361; 96365; 96366; 96368; 96375; 97116-GP; 97162-GP; 99285-25; G0378; Q9967

== ENCOUNTER 2022-11-30 13:34 | Emergency (ER) | payer OTHER ==
[2022-11-30 13:49] VITALS: BP 116/79; PULSE 64; RESP 18; TEMP 98.7; BMI 24.6
[2022-11-30] MEDS ORDERED: MAG HYDROX/AL HYDROX/SIMETH 30 ML UNIT-DOSE CUP ONE (14:51)
[2022-11-30 15:23] LABS: BASO % 0.7 % (0-2.0); EOS % 0.5 % (0-4.5); HEMATOCRIT 43.6 % (35.4-49); HEMOGLOBIN 14.3 GM/dL (11.7-16.9); LYMPH % 26.8 % (8-40); MCH 28.8 pg (25.7-33.7); MCHC 32.8 g/dl (32.0-35.9); MEAN CELL VOLUME 87.8 fl (80-96); MEAN PLT VOLUME 10.6 fl (7.5-11.1); MONO % 12.6 % (3.8-10.2); NEUT % 59.4 % (42.8-82.8); PLATELET COUNT 164 10^3/uL (134-434); RBC 4.96 M/mm3 (4.00-5.60); RDW 12.7 % (11.9-15.9); WHITE BLOOD COUNT 7.7 K/mm3 (4.0-10.0)
[2022-11-30 15:27] LABS: POTASSIUM 3.3 mmol/L (3.5-5.1)
[2022-11-30 15:29] LABS: BLOOD UREA NITROGEN 10.8 mg/dL (7-18); CALCIUM 9.3 mg/dL (8.5-10.1)
[2022-11-30 15:30] LABS: ALBUMIN 4.3 g/dl (3.4-5.0); AMYLASE 35 U/L (25-115); LIPASE 55 U/L (73-393)
[2022-11-30 15:33] LABS: CREATININE 0.9 mg/dL (0.55-1.3)
[2022-11-30 15:34] LABS: BILIRUBIN,TOTAL 1.9 mg/dL (0.2-1); TOT PROT 8.5 g/dl (6.4-8.2)
[2022-11-30] MEDS ORDERED: MAG HYDROX/ALH/SMC/DPHA/LIDO 240 ML MOUTHWASH MM ONE (16:33)
[2022-11-30] MEDS ORDERED: MAG HYDROX/ALH/SMC/DPHA/LIDO 240 ML MOUTHWASH MM SCH (18:00)
[2022-11-30] MEDS ORDERED: POTASSIUM CHLORIDE TABS 20 MEQ TABLET.ER (FP) PO ONE ×2 (19:13→19:30)
[2022-11-30] MEDS ORDERED: CIPROFLOXACIN 500 MG TABLET (RESTRICTED TO ID) PO ONE (19:14)
== END 2022-11-30 20:51 | disposition home or self-care (01) ==
LOC: JER 13:34
DX: R10.32 Left lower quadrant pain (principal); R10.12 Left upper quadrant pain; K52.9 Noninfective gastroenteritis and colitis, unspecified; E87.6 Hypokalemia
CPT/HCPCS: 36415; 74177-TC; 76705-TC; 80053; 82150; 83605; 83690; 84132; 85025; 93005; 93010; 99285-25; Q9967